=== PATIENT | male | born 1985 | race Caucasian/White ===

== ENCOUNTER 2022-05-21 08:53 | Day surgery (SDC) | payer OTHER ==
[~2022-05-21] VITALS: Ht 172.7 cm; Wt 68.0 kg
[2022-05-21] MEDS ORDERED: TORADOL PO (11:21)
[2022-05-21 14:11] VITALS: BP 133/86
== END 2022-05-21 13:55 | DRG 352 ==
LOC: ORM 08:53
PROVIDERS: ATTEND Surgery
PROC: 0YU50JZ Supplement Right Inguinal Region with Synthetic Substitute, Open Approach (ICD-10-PCS; principal; 2022-05-21)
DX: K40.90 Unilateral inguinal hernia, without obstruction or gangrene, not specified as recurrent (principal)
CPT/HCPCS: C9290; J0131